=== PATIENT | female | born 1965 | race Caucasian/White ===

== ENCOUNTER 2016-05-08 02:17 | Inpatient (IN) | payer OTHER ==
--- NOTE | ~2016-05-08 | DS ---
Discharge Summary [facility] [address] [place]. [address] NAME: DIONICIO ARANGO : 65 STATUS : DIS IN PAT#: [id number] AGE: 51 ADM/REG DATE : 05/08/16 MR#: [id number] REPORT SERV DATE: 05/11/16 DICTATED BY: ROSANGELA GO DATE: 05/11/16 REPORT STATUS : Draft TRANSCRIBED BY: MODL DATE: 05/11/16 ADMISSION DATE: 05/08/2016 DISCHARGE DATE: 05/11/2016 FINAL DIAGNOSES: 1. Status post encephalopathy, likely secondary to lithium. 2. History of ventriculoperitoneal shunt. 3. Sarcoidosis. 4. Hypercalcemia, improved. 5. Diabetes. 6. Hypertension. 7. Depression, anxiety, and obsessive compulsive disorder. 8. History of ovarian cancer. 9. History of gout. CONSULTING PHYSICIAN: Neurology, Dr. Nair. DIAGNOSTIC EXAMS: CAT scan of the brain showing ventricles are decompressed by the shunt tube, prior surgery with right frontal bur hole with an associated region of encephalomalacia. No acute intraparenchymal hemorrhage or subdural hematoma. Chest x-ray showing no acute cardiopulmonary abnormality. Spinal puncture. Successful fluoroscopic guided lumbar puncture at L4-L5 level, 11 mL of the CSF obtained. MRI of the brain showing evidence for prior right frontal and currently right parietal ventricular shunt in place. The ventricles are midline, deviated. No downward displacement. Nothing on the pre- or post-contrast images to suggest a neurosarcoidosis. MRA of the head, normal intracranial MRA. MRA of the neck showing minimal right internal carotid atheroma. No significant stenosis. Remainder of the brachiocephalic structures are normal. HOSPITAL COURSE: Please refer to the H and P done by Dr. Gross dated on 05/08/2016. Briefly, this is a 51-year-old male, who comes in for change in mental status. The patient has a history of traumatic brain injury, SENIOR SECURITY ARCHITECT shunt, diabetes, hypertension, depression. Was recently started on lithium. The patient then had worsening of her mental status, becoming lethargic and not eating. The patient went to [facility] and was sent here to have a CT guided lumbar puncture. The patient did not have any fever. White count is elevated, but the patient is on chronic steroids secondary to her sarcoidosis. However, with her change in mental status, extensive neurological changes and intervention, we got Neurologic involved and did the above tests. Fortunately, everything seems to be normal, and the patient's mental status went back to her baseline. The patient LP showed an elevated protein and elevated white count with lymphocytic predominance. We believe that this is because of her steroids. So far we did not find any phone call infection. AFB smear is negative. No encapsulated yeast and no organisms or growth bacterially found on the CSF. The patient VDRL is also negative. We have pending HSV and MAYA level, however, this is unlikely at this point. The patient also had an EEG, but the suspicion for seizures is low as there is no evidence for clinical seizures on her. We also did a nocturnal oximetry which shows 145 desaturation of events less than 3 minutes. The patient might benefit from an outpatient sleep study later on. So, at this point, as the patient is improving, we will Discharge Summary [address] [place]. [address] NAME: DIONICIO ARANGO : 65 STATUS : DIS IN PAT#: [id number] AGE: 51 ADM/REG DATE : 05/08/16 MR#: [id number] REPORT SERV DATE: 05/11/16 DICTATED BY: ROSANGELA GO. DATE: 05/11/16 REPORT STATUS : Draft TRANSCRIBED BY: SANDY DATE: 05/11/16 be discharging her with the above diagnosis. She will be on the following medications. Allopurinol 300 mg a day, Norvasc new medication 5 mg a day, vitamin B12 of 1000 mcg a day, Celexa 40 mg a day, Lantus 50 units at bedtime sliding scale level 2, Claritin 10 mg a day, Mevacor 40 mg at bedtime, prednisone 5 mg a day, Caltrate 600 + D twice a day, vitamin D3 of 1000 units a day, albuterol inhaled p.r.n., metformin 1000 mg twice a day. The patient will follow up with her PCP, Dr. Bairon Valencia in [facility]. MYRA/SANDY Rosangela Go M.D. / [id number] CC: Analia Mcdermott M.D.
--- NOTE | ~2016-05-08 | PUL ---
[id number] [place]. [address] NAME: DIONICIO ARANGO : 65 STATUS : ADM IN PAT#: [id number] AGE: 51 ADM/REG DATE : 05/08/16 MR#: [id number] REPORT SERV DATE: 05/11/16 DICTATED BY: ANTOLIN GASCA DATE: 05/11/16 REPORT STATUS : Draft TRANSCRIBED BY: MODL DATE: 05/11/16 PULMONARY FUNCTION TEST PROCEDURE: Nocturnal oximetry study on room air. DESCRIPTION: This is a nocturnal oximetry study performed on room air on 05/10/2016 starting at 10:01 p.m., ending 05/11/2016 at 05:12 a.m. Total recording time was 7 hours 11 minutes and 5 seconds. Average heart rate 89 with a low of 82 and a high of 96. Average O2 saturation 91.8% with a low of 78%. Time below 88% was 32 minutes 22 seconds or 7.5% of the study night. Oxygen desaturation index was elevated at 19.4. IMPRESSION: Abnormal nocturnal oximetry study showing significant oxygen desaturation down to 78% and an elevated time below 88% along with an elevated oxygen desaturation index. If sleep apnea is of concern, then outpatient sleep study would be needed. If sleep apnea has been ruled out, then secondary causes to be addressed and the patient would qualify for nocturnal oxygen. Correlate clinically. LEONARDO/SANDY Antolin Gasca DO / [id number] CC: Analia Mcdermott,Bairon Rubio
--- NOTE | ~2016-05-08 | CN ---
Consultation Report [facility] [address] [place]. [address] NAME: DIONICIO ARANGO : 65 STATUS : ADM IN PAT#: [id number] AGE: 51 ADM/REG DATE : 05/08/16 MR#: [id number] REPORT SERV DATE: 05/09/16 DICTATED BY: TIMUR SERRANO DATE: 05/09/16 REPORT STATUS : Draft TRANSCRIBED BY: MODL DATE: 05/09/16 NEUROLOGY CONSULTATION DATE OF CONSULTATION: 05/09/2016 REASON FOR CONSULTATION: Episodes of altered mental status. PCP: Unknown. HOSPITALIST: Dr. Chriss Gonzáles. HISTORY OF PRESENT ILLNESS: The patient is a 51-year-old female, who has a complicated history. The patient sustained a traumatic brain injury from a fall. This is not evident in her H and P. Most of the information was obtained by Dr. Chriss Gonzáles through phone conversations with [facility] and through verbal reports from the family. It is unclear as to whether the patient had hydrocephalus previous to the fall or acquired hydrocephalus as a consequence of the traumatic brain injury. However, prior to this the patient was taking care of her mother, who had a stroke. She took care of her mother for approximately five years, and then her mother . The patient reportedly became very depressed, and then had her fall. She has been in the correction, and was having "episodes of withdrawal." It was thought that the patient was having episodes of depression, so she was placed on lithium. Somewhere along the way, she was diagnosed with sarcoidosis, and she was also placed on oral steroids. She started out with a very high dose and was gradually tapered down to a dose of 5 mg a day. Her white blood cell count became elevated. It was thought she may have encephalitis or meningitis. She was transferred over to [facility] for a full neurologic workup. Apparently, she had a lumbar puncture done in which she had abnormal results. Neurology was consulted to evaluate these abnormal results and also the patient's neurologic status. PAST MEDICAL HISTORY: Traumatic brain injury status post TREND INVESTIGATOR shunt, gout, diabetes mellitus type 2, hyperlipidemia, hypertension, depression, anxiety, ovarian cancer, and sarcoidosis. PAST SURGICAL HISTORY: TREND INVESTIGATOR shunt placement and total abdominal hysterectomy. MEDICATIONS: Prior to admission: Albuterol treatments one neb treatment p.r.n. wheezing daily, calcium with vitamin D twice a day, and vitamin D3 1000 units daily, Celexa 40 mg daily, Lantus SoloSTAR insulin 50 units subcu at bedtime, Humalog insulin 20 units subcu a.c., Humalog insulin sliding scale, lithium 300 mg b.i.d., Claritin 10 mg daily, Mevacor 40 mg at bedtime, metformin 1000 mg b.i.d., and prednisone 5 mg b.i.d. ALLERGIES: INCLUDE PENICILLIN. SOCIAL HISTORY: The patient lives at [facility]. She has no children. She has never been . She is a ase certified technician. She does not smoke, drink alcohol, or Consultation Report [address] [place]. [address] NAME: DIONICIO ARANGO : 65 STATUS : ADM IN [facility]#: [id number] AGE: 51 ADM/REG DATE : 05/08/16 MR#: [id number] REPORT SERV DATE: 05/09/16 DICTATED BY: TIMUR SERRANO DATE: 05/09/16 REPORT STATUS : Draft TRANSCRIBED BY: SANDY DATE: 05/09/16 use recreational drugs. FAMILY HISTORY: The patient's mother at the age of 69 from a stroke. Her father at age of 53 from an [place]. She is an only child. REVIEW OF SYSTEMS: Unable to obtain from the patient. PHYSICAL EXAMINATION: GENERAL: The patient stands 5 feet 6 inches tall and weighs 100 kg. She has a cushingoid appearance. VITAL SIGNS: She is slightly febrile with a temperature of 99, heart rate 84, respiratory rate 16, O2 saturations on 2 L nasal cannula 97%, and blood pressure 150/64. NEUROLOGIC: The patient is awake. She is minimally verbal, dysarthric. She becomes less verbal as the physical exam progresses. Questionable MR. Pupils are 3 mm PERRLA. Cranial nerves 2 through 12 are intact. She can move all extremities x4. Has difficulty following even simple one-step commands. Upper extremities; the strength is 3/5 bilaterally. DTRs 2+ bilaterally. Unable to assess for sensation due to minimal verbal response. Lower extremity strength is a 3/5 bilaterally. Patellar reflexes 2+ bilaterally. Downgoing toes. Again, unable to assess for sensory deficits. NECK: No carotid bruits. CHEST: Lung sounds are diminished in the bases. CARDIAC: Regular rate and rhythm. LABORATORY DATA: CBC shows a white count of 20.3 (currently on steroids). BMP: Glucose 168, TSH is normal at 2.46. [place] level is 1.10. CT of the brain, right frontal corbin hole, otherwise no acute changes. Encephalomalacia in the right frontal region. Ionized calcium of 5.49. Lumbar puncture; 11 mL of CSF was obtained. Glucose 58, protein 339. Xanthochromia is positive. RBCs; none. White blood cell count is 252. Lymphocytes 94 and monocytes 6. ASSESSMENT/PLAN: 1. Episodes of altered mental status. Etiology is unknown at this point. The patient will undergo an EEG to rule out secondary seizure activity. She will also have an MRI of the brain with and without contrast, and an MRA of the head and neck. Lab work will be drawn to include an Reg, B12, and folate. PT, OT, and Speech Therapy will be consulted. Thiamine IV will be given. 2. Traumatic brain injury with TREND INVESTIGATOR shunt placement. 3. Abnormal lumbar puncture results. At this point, there is a concern for neurosarcoidosis. Extra CSF will be sent off for TB analysis and REG inhibitors. The patient's serum will also be checked for TB. Thank you again for including us in consultation. We will continue to follow with you. Consultation Report [address] [place]. [address] NAME: DIONICIO ARANGO : 65 STATUS : ADM IN [facility]#: [id number] AGE: 51 ADM/REG DATE : 05/08/16 MR#: [id number] REPORT SERV DATE: 05/09/16 DICTATED BY: TIMUR SERRANO DATE: 05/09/16 REPORT STATUS : Draft TRANSCRIBED BY: SANDY DATE: 05/09/16 TAPAN/SNADY MELONIE Santos- / [id number] CC: Chriss Gonzáles M.D.
--- NOTE | ~2016-05-08 | EEG ---
Electroencephalogram [address] [place]. [address] NAME: DIONICIO ARANGO : 65 STATUS : DIS IN PAT#: [id number] AGE: 51 ADM/REG DATE : 05/08/16 MR#: [id number] REPORT SERV DATE: 05/13/16 DICTATED BY: RICH NAIR DATE: 05/13/16 REPORT STATUS : Draft TRANSCRIBED BY: MODL DATE: 05/13/16 ORDERING PHYSICIAN: Gabriela Plata [facility] INTERPRETING PHYSICIAN: Rich Nair M.D. REASON FOR EEG: Encephalopathy, altered mental status. 23 surface electrodes, 10-20 international placement was used. The patient was noted to be awake and drowsy throughout the study. Photic stimulation was performed. Video monitoring was utilized. The background activity consisted of poorly organized, moderate voltage, 6-7 cycles per second located in the posterior head regions. This activity did not appear to attenuate with the eye opening maneuvers. The patient remained somnolent throughout this study. No significant asymmetry of cerebral activity was noted. No paroxysmal epileptiform features were detected. Photic stimulation did not bring out additional abnormality. There was no visible driving response to photic stimulation. IMPRESSION: ABNORMAL EEG CHARACTERIZED BY PRESENCE OF DIFFUSE SLOWING OF CEREBRAL ACTIVITY. NO PAROXYSMAL EPILEPTIFORM ACTIVITY WAS NOTED DURING THIS STUDY. THE PATIENT'S MOTOR VEHICLE FIELD REPRESENTATIVE SHOWED SINUS RHYTHM, RATE OF APPROXIMATELY 88 BEATS PER MINUTE. THIS EEG IS COMPATIBLE WITH DIFFUSE CEREBRAL DYSFUNCTION. NATURE OF WHICH COULD NOT BE DETERMINED ON THE BASIS OF THE EEG ALONE. CLINICAL CORRELATION IS RECOMMENDED. MIRIAN/SANDY Rich Nair MD / [id number] CC: Analia Mcdermott M.D.
[~2016-05-08 02:17] MED LIST: ALBUTEROL0.63 MG/3 INH; CALTRA600D PO; CELEXA40 MG PO; CLARIT10 PO; ESKALITH PO; FORTAMET1000 MG PO; HUMALOG SC; LANTUSCART SC; MEVACOR40 MG PO; MONODOX100 MG PO; P20 PO; P5 PO; VITAMIN D31000 UNIT PO; Z300 PO
[2016-05-08 05:10] LABS: CALCIUM IONIZED 5.49 MG/DL (3.80-4.80)
[2016-05-08 05:31] LABS: ALBUMIN 3.3 G/DL (3.5-5.0); ALKALINE PHOSPHATASE 64 U/L (45-117); CHLORIDE, SERUM 100 MMOL/L (96-112); CO2 (CARBON DIOXIDE) 31 MMOL/L (24-34); FREE T4 1.22 NG/DL (0.76-1.46); GFR AFRICAN AMERICAN 116 ML/MIN (>=60); GFR NON AFRICAN AMERICAN 100 ML/MIN (>=60); GLOBULIN 3.3 G/DL (2.5-4.1); GLUCOSE, SERUM 168 MG/DL (60-99); POTASSIUM, SERUM 4.1 MMOL/L (3.5-5.3); SGOT(AST) 21 U/L (5-40); SGPT(ALT) 42 U/L (5-65); SODIUM, SERUM 141 MMOL/L (135-148); TOTAL PROTEIN 6.6 G/DL (6.0-8.5)
[2016-05-08 05:33] LABS: BUN (BLOOD UREA NITROGEN) 21 MG/DL (6-23); CALCIUM, SERUM 10.2 MG/DL (8.5-10.4); TOTAL BILIRUBIN 0.9 MG/DL (0-1.2)
[2016-05-08 05:55] LABS: INTACT PTH (ICMA) 50.2 PG/ML (10.0-65.0)
[2016-05-08 05:59] LABS: PROCALCITONIN <0.05 ng/mL (<0.5)
[2016-05-08 09:13] LABS: HEMATOCRIT 44.1 % (36.0-48.0); MEAN CORPUSCULAR HEMOGLOB 29.8 pg (26.0-34.0); MEAN CORPUSCULAR VOLUME 87.7 fL (80-100); MEAN PLATELET VOLUME 9.1 fL (9.2-13.0); PLATELET COUNT 259 10/3/uL (150-400); RBC DISTRIBUTION WIDTH 15.3 % (12.0-16.0); RED CELL COUNT 5.03 10/6/uL (4.0-5.6); WHITE BLOOD CELLS 20.3 10/3/uL (4.5-10.5)
[2016-05-08 09:16] LABS: MANUAL DIFF YES %
[2016-05-08 10:18] LABS: BAND NEUTROPHILS 2 %; LYMPHOCYTES 7 %; LYMPHOCYTES ABSOLUTE (CALC) 1.42 10/3/uL (0.67-4.30); MONOCYTES 6 %; MONOCYTES ABSOLUTE (CALC) 1.22 10/3/uL (0.21-1.20); NEUTROPHILS ABSOLUTE (CALC) 17.66 10/3/uL (2.02-8.40); PLATELET ESTIMATE ADQ (ADEQUATE); RBC MORPHOLOGY NORM (NORMAL); SEGMENTED NEUTROPHIL (0) 85 %; TOTAL NUCLEATED CELLS 100
[2016-05-08 13:57] LABS: GLYCOHEMOGLOBIN (HbA1c) 6.8 % (4.7-6.1)
[2016-05-08 15:32] LABS: CSF BASO 0 % (NO REF RANGE); CSF EOS 0 % (0-1); CSF LYMPH (NOT ORD) 94 % (28-96); CSF MONO 6 % (16-56); CSF SEGS (NOT ORD) 0 % (0-7)
[2016-05-08 15:33] LABS: CSF APPEARANCE (NOT ORD) CLEAR (CLEAR); CSF COLOR (NOT ORD) XANTHOCHROMIC (COLORLESS); CSF RBC (NOT ORD) 0 MM3 (NO REFERENCE); CSF WBC (NOT ORD) 252 /uL (0-10); CSF XANTHROCHROMIA POS (NEG)
[2016-05-09 06:55] LABS: CALCIUM, SERUM 9.7 MG/DL (8.5-10.4); CHLORIDE, SERUM 103 MMOL/L (96-112); CO2 (CARBON DIOXIDE) 30 MMOL/L (24-34); GFR AFRICAN AMERICAN 122 ML/MIN (>=60); GFR NON AFRICAN AMERICAN 106 ML/MIN (>=60); GLUCOSE, SERUM 141 MG/DL (60-99); SODIUM, SERUM 139 MMOL/L (135-148)
[2016-05-09 06:58] LABS: BUN (BLOOD UREA NITROGEN) 13 MG/DL (6-23)
[2016-05-10 06:34] LABS: ALBUMIN 2.8 G/DL (3.5-5.0); CHOL/HDL RATIO(NOT ORDER) 2.7 (0-5); CHOLESTEROL 112 MG/DL (< 200); HDL CHOLESTEROL 42 MG/DL (> 49); LDL CHOLESTEROL 50 MG/DL (< 130); NON-HDL CHOLESTEROL 70 MG/DL (< 160); SGPT(ALT) 33 U/L (5-65); TOTAL PROTEIN 5.7 G/DL (6.0-8.5); TRIGLYCERIDE 102 MG/DL (< 150)
[2016-05-10 06:37] LABS: ALKALINE PHOSPHATASE 46 U/L (45-117); C-REACTIVE PROTEIN < 2.9 MG/L (<8.0); DIRECT BILIRUBIN 0.1 MG/DL (0.0-0.4); INDIRECT BILIRUBIN(NOT ORDER) 0.2 MG/DL (0.1-0.9); TOTAL BILIRUBIN 0.3 MG/DL (0-1.2)
[2016-05-10 06:39] LABS: FOLATE 10.1 NG/ML (>5.2); SGOT(AST) 17 U/L (5-40)
[2016-05-10 10:46] LABS: GLYCOHEMOGLOBIN (HbA1c) 6.5 % (4.7-6.1)
[2016-05-11 15:25] LABS: HSV DNA TYPE 1 Not Detected (NOTDET); HSV DNA TYPE 2 Not Detected (NOTDET)
== END 2016-05-11 15:15 | DRG 93 ==
LOC: 5SO 02:17
PROVIDERS: Hospitalist; Internal Medicine; Nurse Practitioner
PROC: 009U3ZX Drainage of Spinal Canal, Percutaneous Approach, Diagnostic (ICD-10-PCS; principal; 2016-05-08)
PROC: B01B1ZZ Fluoroscopy of Spinal Cord using Low Osmolar Contrast (ICD-10-PCS; 2016-05-08)
DX: G92 Toxic encephalopathy (principal); E83.52 Hypercalcemia; I10 Essential (primary) hypertension; Z87.820 Personal history of traumatic brain injury; E11.9 Type 2 diabetes mellitus without complications; E78.5 Hyperlipidemia, unspecified; F32.9 Major depressive disorder, single episode, unspecified; F41.9 Anxiety disorder, unspecified; Z85.43 Personal history of malignant neoplasm of ovary; D86.9 Sarcoidosis, unspecified; Z90.710 Acquired absence of both cervix and uterus; Z79.899 Other long term (current) drug therapy; Z79.4 Long term (current) use of insulin; Z79.84 Long term (current) use of oral hypoglycemic drugs; Z82.3 Family history of stroke; Z82.49 Family history of ischemic heart disease and other diseases of the circulatory system; Z68.35 Body mass index [BMI] 35.0-35.9, adult; E66.9 Obesity, unspecified; R46.81 Obsessive-compulsive behavior; Z88.0 Allergy status to penicillin
CPT/HCPCS: 62270; 70544; 70548; 70553; 71010; 77003; 80048; 80053; 80061; 80076; 82140; 82164; 82330; 82533; 82607; 82746; 82945; 82962; 83036; 83735; 83970; 84145; 84157; 84439; 84443; 84484; 85025; 85652; 86140; 86592; 87015; 87040; 87070; 87102; 87116; 87205; 87210; 87327; 87529; 87529-59; 88112; 89051; 94762; 95816; 97110-GP; 97162-GP; 97530-GP; A9270-GY; A9577; J0360; J2405; J2430; J3370